=== PATIENT | female | born 1995 | race Hispanic/Latino ===

== ENCOUNTER 2021-03-11 22:17 | Inpatient (IN) | payer OTHER, SELFPAY ==
[2021-03-11] MEDS ORDERED: Fentanyl 100 MCG/2 ML VIAL ONE (22:21)
[2021-03-11] MEDS ORDERED: Ampicillin 2 GM VIAL ONE (22:25)
[2021-03-11] MEDS ORDERED: CEFAZOLIN 1 GM VIAL ONE (22:26)
[2021-03-11 23:18] LABS: #Eosinphils 0.1 thou/uL (0.0-0.7); #Lymphocytes 2.9 thou/uL (1.20-3.40); #Monocytes 0.7 thou/uL (0.11-0.59); #Neutrophils 12.4 thou/uL (1.40-6.50); %Basophils 0.1 % (0.0-1.0); %Eosinophils 0.6 % (0.0-10.0); %Lymphocytes 17.9 % (21.0-51.0); %Monocytes 4.5 % (0.0-10.0); Hemoglobin 13.6 g/dL (12.0-16.0); Mean Corpuscular Hemoglobin 28.2 pg (27.0-31.0); Mean Corpuscular Volume 85.5 fL (78.0-98.0); Mean Platelet Volume 6.9 fL (7.4-10.4); Platelet Count 273 thou/uL (130-400); RBC Distribution Width 12.6 % (11.5-14.5); Red Blood Cell (RBC) Count 4.84 mill/uL (4.20-5.40); White Blood Cell (WBC) Count 16.2 thou/uL (4.8-10.8)
[2021-03-11 23:28] LABS: BHCG - Serum Negative (NEGATIVE); INR-International Normal Ratio 1.1; PTT 28.7 sec (22.9-36.1); Pregs Control Background? CLEAR/WHITE (CLR/WHITE); Pregs Control Bar Appear? YES (CONTROL BAR); Prothrombin Time 13.9 sec (12.0-14.7)
[2021-03-11] MEDS ORDERED: Boostrix 0.5 ML (Tdap) VIAL ONE (23:32)
[2021-03-11 23:34] LABS: ALT (SGPT) 15 U/L (8-55); AST (SGOT) 19 U/L (5-34); Albumin 3.3 g/dL (3.5-5.0); Alkaline Phosphatase 77 U/L (40-110); Anion Gap 12 mmol/L (10-20); BUN (Urea Nitrogen) 8 mg/dL (7.0-18.7); Bilirubin, Total 0.2 mg/dL (0.2-1.2); Calc. Creatinine Clearance 0 mL/min (70-130); Carbon Dioxide 19 mmol/L (22-29); Chloride 108 mmol/L (98-107); Glucose 148 mg/dL (70-105); Potassium 3.3 mmol/L (3.5-5.1); Protein, Total 6.3 g/dL (6.0-8.3); Sodium 136 mmol/L (136-145)
[2021-03-12] MEDS ORDERED: Morphine 4 MG/ML VIAL ONE (00:02)
[2021-03-12] MEDS ORDERED: Ondansetron PF 4 MG/2 ML Vial ONE (00:02)
[2021-03-12] MEDS ORDERED: Ketamine 50 MG/ML (10ML VIAL) ONE (00:56)
[2021-03-12] MEDS ORDERED: Ondansetron PF 4 MG/2 ML Vial IVP PRN (01:06)
[2021-03-12] MEDS ORDERED: Morphine 4 MG/ML VIAL SLOW IVP PRN (01:06)
[2021-03-12] MEDS ORDERED: Dextrose 5% in Water 1,000 ML IV PRN (01:06)
[2021-03-12] MEDS ORDERED: Dextrose 50% Abboject 50 ML SYRINGE SLOW IVP PRN (01:06)
[2021-03-12] MEDS ORDERED: traMADol HCl 50 MG TAB PO PRN ×2 (01:09)
[2021-03-12 01:29] LABS: SARS-CoV-2 NAA Rapid Test Not Detected (NotDetected)
[2021-03-12 01:45] LABS: Alcohol Less than 10 mg/dL (Less than 10); Magnesium 1.6 mg/dL (1.6-2.6); Phosphorus 2.6 mg/dL (2.3-4.7)
[2021-03-12 02:09] LABS: Lactic Acid 2.4 mmol/L (0.5-2.2)
[2021-03-12] MEDS ORDERED: Potassium Phosphate 30 MMOL in Sodium Chloride 0.9% 250 ML 250 ML IVPB SCH (03:15)
[2021-03-12] MEDS ORDERED: Magnesium 2 GM/50 ML 2 GM in Premix Bag 1 BAG IVPB SCH (03:15)
[2021-03-12] MEDS: Sodium Chloride 0.9% 1,000 ML IV SCH ×3 (05:33→22:43)
[2021-03-12] MEDS ORDERED: CEFAZOLIN 1 GM VIAL SLOW IVP SCH (06:00)
[2021-03-12] MEDS: Cyclobenzaprine 10 MG TAB PO PRN ×2 (06:20→20:48)
[2021-03-12] MEDS: Ibuprofen 200 MG TAB PO SCH ×3 (06:20→20:48)
[2021-03-12 06:35] VITALS: BMI 41.1
[2021-03-12] MEDS: Acetaminophen 500 MG TAB PO SCH ×4 (07:00→20:48)
[2021-03-12] MEDS ORDERED: FLU VACC QS2021-22(6MOS UP)/PF 60 MCG/0.5 ML SYRINGE IM ONE (09:00)
[2021-03-12] MEDS: ceFAZolin 2 GM/Dextrose 50 ML 2 GM in Premix Bag 1 BAG IVPB SCH ×3 (10:46→20:47)
[2021-03-12] MEDS: Gabapentin 300 MG CAP PO SCH ×3 (11:32→20:49)
[2021-03-12] MEDS: Senokot S 8.6-50 MG TAB PO SCH ×2 (11:34→20:54)
[2021-03-12] MEDS: Famotidine 20 MG TAB PO SCH ×2 (11:34→20:49)
[2021-03-12] MEDS: Polyethylene Glycol 3350 17 GM Packet PO SCH (11:35)
[2021-03-13] MEDS: Acetaminophen 500 MG TAB PO SCH ×3 (03:20→15:23)
[2021-03-13] MEDS: Ibuprofen 200 MG TAB PO SCH ×2 (05:35→13:41)
[2021-03-13] MEDS: ceFAZolin 2 GM/Dextrose 50 ML 2 GM in Premix Bag 1 BAG IVPB SCH ×2 (05:35→13:48)
[2021-03-13 06:45] LABS: #Eosinphils 0.2 thou/uL (0.0-0.7); #Lymphocytes 2.7 thou/uL (1.20-3.40); #Monocytes 0.4 thou/uL (0.11-0.59); #Neutrophils 3.5 thou/uL (1.40-6.50); %Basophils 0.7 % (0.0-1.0); %Lymphocytes 39.3 % (21.0-51.0); %Monocytes 5.6 % (0.0-10.0); %Neutrophils 51.4 % (42.0-75.0); Hemoglobin 11.9 g/dL (12.0-16.0); Mean Corpuscular HGB CONC 32.6 g/dL (32.0-36.0); Mean Corpuscular Hemoglobin 28.6 pg (27.0-31.0); Mean Corpuscular Volume 87.7 fL (78.0-98.0); Mean Platelet Volume 7.1 fL (7.4-10.4); Platelet Count 209 thou/uL (130-400); RBC Distribution Width 12.9 % (11.5-14.5); Red Blood Cell (RBC) Count 4.15 mill/uL (4.20-5.40); White Blood Cell (WBC) Count 6.8 thou/uL (4.8-10.8)
[2021-03-13 06:59] LABS: Anion Gap 10 mmol/L (10-20); BUN (Urea Nitrogen) 4 mg/dL (7.0-18.7); Calc. Creatinine Clearance 181 mL/min (70-130); Calcium 7.7 mg/dL (7.8-10.44); Carbon Dioxide 19 mmol/L (22-29); Chloride 114 mmol/L (98-107); Glucose 96 mg/dL (70-105); Magnesium 2.2 mg/dL (1.6-2.6); Phosphorus 2.5 mg/dL (2.3-4.7); Sodium 139 mmol/L (136-145)
[2021-03-13] MEDS: Polyethylene Glycol 3350 17 GM Packet PO SCH (09:29)
[2021-03-13] MEDS: Gabapentin 300 MG CAP PO SCH ×2 (09:29→15:23)
[2021-03-13] MEDS: Famotidine 20 MG TAB PO SCH (09:29)
[2021-03-13] MEDS: Senokot S 8.6-50 MG TAB PO SCH (09:29)
[2021-03-13 13:12] VITALS: BP 116/79; TEMP 98.2
[2021-03-13] MEDS: Cyclobenzaprine 10 MG TAB PO PRN (18:33)
== END 2021-03-13 19:21 | disposition home or self-care (01) | DRG 563 ==
LOC: ERS 22:17 → SJJU 03-12 00:56
PROVIDERS: ADMIT Surgery; ATTEND Surgery
DX: S42.352B Displaced comminuted fracture of shaft of humerus, left arm, initial encounter for open fracture (principal); Z20.822 Contact with and (suspected) exposure to COVID-19; Z23 Encounter for immunization; S92.354A Nondisplaced fracture of fifth metatarsal bone, right foot, initial encounter for closed fracture; E87.6 Hypokalemia; Z98.51 Tubal ligation status; Z90.49 Acquired absence of other specified parts of digestive tract; V03.99XA Pedestrian with other conveyance injured in collision with car, pick-up truck or van, unspecified whether traffic or nontraffic accident, initial encounter
CPT/HCPCS: 36415; 70450; 71045; 71260; 72125; 72170; 74177; 80048; 80053; 80307; 83605; 83735; 84100; 84703; 85025; 85610; 85730; 86850; 86900; 86901; 90715; G0390; J0290; J0690; J2270; J2405; J3010; J3475; J7050; U0002